=== PATIENT | female | born 1960 | race Caucasian/White ===

== ENCOUNTER 2018-11-25 07:53 | Inpatient (IN) | payer BC, MEDICAID ==
[~2018-11-25] VITALS: Ht 160 cm; Wt 55.6 kg
[2018-11-25] MEDS ORDERED: LACTATED RINGERS 1,000 ML IV ONE (08:20)
[2018-11-25] MEDS ORDERED: ONDANSETRON 4 MG/2 ML (SDV) Z0FRAN IVP ONE (08:30)
[2018-11-25 08:39] LABS: HEMATOCRIT 43 % (35-52); HEMOGLOBIN 14.6 G/DL (11.5-16.0); MEAN CORPUSCULAR HEMOGLOBIN 31 PG (25-34); MEAN CORPUSCULAR HGB CONC 34 G/DL (32-36); MEAN CORPUSCULAR VOLUME 91 FL (80-99); PLATELET COUNT 274 10^3/uL (130-400); RED CELL DISTRIBUTION WIDTH 12.6 % (10.0-14.5); WHITE BLOOD COUNT 17.4 10^3/uL (4.3-11.0)
[2018-11-25 08:40] LABS: BASOPHILS % (AUTO) 0 % (0-10); EOSINOPHILS % (AUTO) 0 % (0-10); LYMPHOCYTES # (AUTO) 0.9 X 10^3 (1.0-4.0); LYMPHOCYTES % (AUTO) 5 % (12-44); MEAN PLATELET VOLUME 9.1 FL (7.4-10.4); MONOCYTES # (AUTO) 1.4 X 10^3 (0.0-1.0); MONOCYTES % (AUTO) 8 % (0-12); NEUTROPHILS % (AUTO) 86 % (42-75)
--- NOTE | 2018-11-25 08:40 | NUR ---
Note nora in EDM - 11/25/18 at 1039 by RICARDO Mother requests her baby bottle washed. Mother does not use Pedialyte but gives regular juice. Cranberry juice requested. Pt appears not interested. RN stepped away from room.
--- NOTE | 2018-11-25 08:49 | ED Abdominal Pain ---
General Chief Complaint: Abdominal/GI Problems Stated Complaint: VOMITING Nursing Triage Note: Patient c/o nausea, vomiting, and abdominal pain. States it began 2 days ago and she hasn't been able to stop vomiting. Does report that she feel like she has had a temperature on and off for the past two days but has not taken her temperature. Sepsis Screen: No Definite Risk (NIURKA FISHER) History of Present Illness Date Seen by Provider: Nov 25, 2018 Time Seen by Provider: 07:55 Initial Comments A 58 yo female presents to the ER complaining of vomiting. Her symptoms began 2 days ago and limited her daily intake. She has tried to stay hydrated with ice chips but has had difficult time eating due to nausea. States that the nausea and vomiting gets better at night but is generally consistent throughout the day. She does have some abdominal discomfort located in the epigastric and RUQ area. Pain does not travel anywhere. Patient states that she has had sick contacts at work.Patient has not had any bowel movements but has not had trouble urinating. (NIURKA FISHER) Allergies and Home Medications Allergies Coded Allergies: No Known Drug Allergies (Unverified , 11/25/18) Patient Home Medication List Home Medication List Reviewed: Yes (DARIUS DIMAS MD) Review of Systems Review of Systems Constitutional: chills, dizziness; No fever EENTM: No Symptoms Reported Respiratory: Denies Shortness of Air, Denies SOA With Exertion, Denies SOA at Rest Cardiovascular: Denies Chest Pain; Lightheadedness Gastrointestinal: Abdominal Pain; Denies Blood Streaked Stools, Denies Dayana rrhea; Nausea, Poor Appetite, Vomiting Genitourinary: No Symptoms Reported (NIURKA FISHER) EENTM: No Symptoms Reported Respiratory: No Symptoms Reported Cardiovascular: No Symptoms Reported Gastrointestinal: See HPI Genitourinary: No Symptoms Reported Musculoskeletal: no symptoms reported Skin: no symptoms reported Psychiatric/Neurological: No Symptoms Reported Endocrine: No Symptoms Reported (DARIUS DIMAS MD) Past Eazvrmv-Dhgdph-Xhvjhq Hx Patient Social History Alcohol Use: Denies Use Recreational Drug Use: No Smoking Status: Current Everyday Smoker Type Used: Cigarettes 2nd Hand Smoke Exposure: No Recent Foreign Travel: No Contact w/Someone Who Travel: No Recent Infectious Disease Expo: No Recent Hopitalizations: No Physical Abuse: No Sexual Abuse: No Mistreated: No Fear: No (NIURKA FISHER) Immunizations Up To Date Tetanus Booster (TDap): Unknown (NIURKA FISHER) Seasonal Allergies Seasonal Allergies: No (NIURKA FISHER) Past Medical History Surgeries: Yes Section Respiratory: No Cardiac: No Neurological: No Genitourinary: No Gastrointestinal: No Musculoskeletal: No Endocrine: No HEENT: No Cancer: No Psychosocial: No Integumentary: No Blood Disorders: No (NIURKA FISHER) Physical Exam Vital Signs Vital Signs - First Documented 11/25/18 07:57 Temp 97.6 Pulse 97 Resp 18 B/P (MAP) 120/77 (91) Pulse Ox 99 O2 Delivery Room Air (DARIUS DIMAS MD) Vital Signs Capillary Refill : Less Than 3 Seconds (NIURKA FISHER) Height/Weight/BMI Height: 5'3.00" Weight: 122lbs. 4.0oz. 55.189702qt; BMI Method:Actual General Appearance: WD/WN, mild distress HEENT: normal ENT inspection, TMs normal, pharynx normal Respiratory: chest non-tender, lungs clear, normal breath sounds, no respiratory distress, no accessory muscle use Cardiovascular: no edema, no gallop, no JVD, no murmur, tachycardia (With regular rhythm) Peripheral Pulses: 3+ Radial Pulses (R), 3+ Radial Pulses (L) Gastrointestinal: soft, no organomegaly, no pulsatile mass, abnormal bowel sounds (Slightly hyperactive), other (Palpation in the Epigastric area and RUQ produced increase in nausea) Back: no CVA tenderness Neurologic/Psychiatric: alert, oriented x 3 Skin: normal color, warm/dry (NIURKA FISHER) Focused Exam Lactate Level 11/25/18 11:14: Lactic Acid Level 1.72 (DARIUS DIMAS MD) Lactic Acid Level Laboratory Tests Test 11/25/18 11:14 Lactic Acid Level 1.72 MMOL/L (0.50-2.00) (DARIUS DIMAS MD) Progress/Results/Core Measures Results/Orders Lab Results Laboratory Tests Test 11/25/18 08:25 11/25/18 09:30 11/25/18 11:14 Range/Units White Blood Count 17.4 H 4.3-11.0 10^3/uL Red Blood Count 4.67 4.35-5.85 10^6/uL Hemoglobin 14.6 11.5-16.0 G/DL Hematocrit 43 35-52 % Mean Corpuscular Volume 91 80-99 FL Mean Corpuscular Hemoglobin 31 25-34 PG Mean Corpuscular Hemoglobin Concent 34 32-36 G/DL Red Cell Distribution Width 12.6 10.0-14.5 % Platelet Count 274 130-400 10^3/uL Mean Platelet Volume 9.1 7.4-10.4 FL Neutrophils (%) (Auto) 86 H 42-75 % Lymphocytes (%) (Auto) 5 L 12-44 % Monocytes (%) (Auto) 8 0-12 % Eosinophils (%) (Auto) 0 0-10 % Basophils (%) (Auto) 0 0-10 % Neutrophils # (Auto) 15.0 H 1.8-7.8 X 10^3 Lymphocytes # (Auto) 0.9 L 1.0-4.0 X 10^3 Monocytes # (Auto) 1.4 H 0.0-1.0 X 10^3 Eosinophils # (Auto) 0.0 0.0-0.3 10^3/uL Basophils # (Auto) 0.0 0.0-0.1 10^3/uL Neutrophils % (Manual) 87 % Lymphocytes % (Manual) 5 % Monocytes % (Manual) 2 % Eosinophils % (Manual) 0 % Basophils % (Manual) 0 % Band Neutrophils 6 % Sodium Level 131 L 135-145 MMOL/L Potassium Level 3.9 3.6-5.0 MMOL/L Chloride Level 86 L 98-107 MMOL/L Carbon Dioxide Level 21 21-32 MMOL/L Anion Gap 24 H 5-14 MMOL/L Blood Urea Nitrogen 13 7-18 MG/DL Creatinine 0.75 0.60-1.30 MG/DL Estimat Glomerular Filtration Rate > 60 BUN/Creatinine Ratio 17 Glucose Level 376 H 70-105 MG/DL Calcium Level 9.5 8.5-10.1 MG/DL Corrected Calcium 9.7 8.5-10.1 MG/DL Magnesium Level 1.9 1.6-2.4 MG/DL Total Bilirubin 1.1 H 0.1-1.0 MG/DL Aspartate Amino Transf (AST/SGOT) 18 5-34 U/L Alanine Aminotransferase (ALT/SGPT) 21 0-55 U/L Alkaline Phosphatase 144 H 40-136 U/L Total Protein 7.3 6.4-8.2 GM/DL Albumin 3.7 3.2-4.5 GM/DL Urine Color YELLOW Urine Clarity CLEAR Urine pH 5.5 5-9 Urine Specific [place] 1.025 H 1.016-1.022 Urine Protein 1+ H NEGATIVE Urine Glucose (UA) 3+ H NEGATIVE Urine Ketones 3+ H NEGATIVE Urine Nitrite NEGATIVE NEGATIVE Urine Bilirubin 1+ H NEGATIVE Urine Urobilinogen 0.2 NORMAL MG/DL Urine Leukocyte Esterase NEGATIVE NEGATIVE Urine RBC (Auto) 3+ H NEGATIVE Urine RBC 2-5 H /HPF Urine WBC 5-10 H /HPF Urine Squamous Epithelial Cells 2-5 /HPF Urine Crystals NONE /LPF Urine Bacteria TRACE /HPF Urine Casts NONE /LPF Urine Mucus NONE /LPF Urine Culture Indicated YES Lactic Acid Level 1.72 0.50-2.00 MMOL/L (DARIUS DIMAS MD) My Orders Orders - DARIUS DIMAS MD Ed Iv/Invasive Line Start (11/25/18 08:20) Lactated Ringers (Lr 1000 Ml Iv Solution (11/25/18 08:20) Cbc With Automated Diff (11/25/18 08:20) Comprehensive Metabolic Panel (11/25/18 08:20) Magnesium (11/25/18 08:20) Ua Culture If Indicated (11/25/18 08:20) Ondansetron Injection (Zofran Injectio (11/25/18 08:30) Manual Differential (11/25/18 08:25) Ns Iv 1000 Ml (Sodium Chloride 0.9%) (11/25/18 09:31) Promethazine Injection (Phenergan Injec (11/25/18 09:45) Iohexol Injection (Omnipaque 350 Mg/Ml 1 (11/25/18 09:45) Received Contrast (Hold Metformin- Contr (11/25/18 09:45) Sodium Chloride Flush (Catheter Flush Sy (11/25/18 09:45) Ns (Ivpb) (Sodium Chloride 0.9% Ivpb Bag (11/25/18 09:45) Urine Culture (11/25/18 09:30) Ct Abdomen/Pelvis W (11/25/18 09:52) Blood Culture (11/25/18 10:59) Lactic Acid Analyzer (11/25/18 10:59) Ceftriaxone For Iv Use (Rocephin For I (11/25/18 11:00) (DARIUS DIMAS MD) Medications Given in ED Current Medications Medications Dose Ordered Sig/Lety Route Start Time Stop Time Status Last Admin Dose Admin Ceftriaxone Sodium 1000 mg/ Sterile Water 10 ml @ 200 mls/hr ONCE ONCE IV 11/25/18 11:00 11/25/18 11:02 DC 11/25/18 11:37 200 MLS/HR Iohexol 100 ml ONCE ONCE IV 11/25/18 09:45 11/25/18 09:46 DC 11/25/18 10:05 100 ML Lactated Ringer's 1,000 ml @ 0 mls/hr Q0M ONCE IV 11/25/18 08:20 11/25/18 08:22 DC 11/25/18 08:33 0 MLS/HR Ondansetron HCl 8 mg ONCE ONCE IVP 11/25/18 08:30 11/25/18 08:31 DC 11/25/18 08:33 8 MG Promethazine HCl 25 mg ONCE ONCE IVP 11/25/18 09:45 11/25/18 09:46 DC 11/25/18 09:39 25 MG Sodium Chloride 10 ml NEEDED PRN IV 11/25/18 09:45 11/25/18 10:05 10 ML Sodium Chloride 100 ml ONCE ONCE IV 11/25/18 09:45 11/25/18 09:46 DC 11/25/18 10:05 80 ML Sodium Chloride 1,000 ml @ 0 mls/hr Q0M ONCE IV 11/25/18 09:31 11/25/18 09:33 DC 11/25/18 09:39 0 MLS/HR (DARIUS DIMAS MD) Vital Signs/I&O 11/25/18 07:57 Temp 97.6 Pulse 97 Resp 18 B/P (MAP) 120/77 (91) Pulse Ox 99 O2 Delivery Room Air (DARIUS DIMAS MD) Blood Pressure Mean: 91 Progress Progress Note #1: Time: 09:35 Progress Note Discussed the possibility of infection due to elevated blood sugar (376) with no known history of diabetes, elevated WBC (17.4x10^3), and tachycardia. Patient elected for CT after discussing the Risks (possible contrast allergy, cost, radiation exposure), and benefits (identify source of infection, rule out other possible causes) Patient was still nauseous after 1 dose of Zofran Patient was still tachycardic after 1 L of LR's. Progress Note #2: Time: 10:47 Progress Note Discussed with patient that high WBC and high Blood sugar is due to pyelonephritis. Patient was comfortable with being admitted to the [facility] to monitor infection Discussed that her blood sugar will be monitored during stay at hospital and to find a PCP for continued monitoring of her blood sugar. Patient reported reduced nausea with IV promethazine Patient will be started on antibiotics in ER (NIURKA FISHER) Diagnostic Imaging Diagonstic Imaging: CT Plain Films/CT/US/NM/MRI: abdomen Comments NAME: [facility] REC#: [id number] PT STATUS: REG ER : 1960 PHYSICIAN: DARIUS DIMAS MD ADMIT DATE: 11/25/18/ER FS Draft Date of Exam:11/25/18 CT ABDOMEN/PELVIS W PROCEDURE: CT abdomen and pelvis with contrast. TECHNIQUE: Multiple contiguous axial images were obtained through the abdomen and pelvis after administration of intravenous contrast. Auto Exposure Controls were utilized during the CT exam to meet ALARA standards for radiation dose reduction. INDICATION: Two days history of abdominal pain with vomiting. FINDINGS: CT findings most suggestive of bilateral greater right pyelonephritis. There is some nephromegaly, perinephric edema and patchy heterogeneous renal parenchymal enhancement. No hydronephrosis and no radiodense stone at this postcontrast enhanced exam. There were no findings to suggest development of renal abscess. The appendix is normal. The urinary bladder unremarkable. The uterus and adnexa unremarkable. There is no diverticulitis. There is no bowel obstruction. The liver density is consistent with at least mild steatosis and there is mild hepatomegaly. Some perinephric retroperitoneal lymph nodes likely reactive given the suspected renal infection this measured 1 cm and less. IMPRESSION: 1. Findings most suggestive of right greater than left bilateral pyelonephritis with likely mild reactive retroperitoneal adenopathy. No visualized stone or obstruction and no abscess or drainable fluid collection. 2. Chronic mild fatty hepatomegaly. No other acute appearing abnormalities. Dictated on workstation # [id number] Dict: 11/25/18 1014 Trans: 11/25/18 1023 [id number] Interpreted by: GARRET MONTES DE OCA Time of Consult: 10:23 (NIURKA FISHER) Departure Communication (Admissions) Time/Spoke to Admitting Phy: 10:55 (DARIUS DIMAS MD) Impression Primary Impression: Pyelonephritis Additional Impressions: Sepsis Qualified Codes: A41.9 - Sepsis, unspecified organism Hypovolemia Hyperglycemia Nausea & vomiting Qualified Codes: R11.2 - Nausea with vomiting, unspecified Disposition: ADMITTED INPATIENT Condition: Stable Admissions Decision to Admit Reason: Admit from ER (General) Decision to Admit/Date: Nov 25, 2018 Time/Decision to Admit Time: 10:45 (NIURKA FISHER) Decision to Admit Reason: Admit from ER (General) Decision to Admit/Date: Nov 25, 2018 Time/Decision to Admit Time: 10:45 (DARIUS DIMAS MD) Transfer Time Spoke to Accepting Phy: 10:55 Transfer Facility: [facility] Method of Transfer: EMS (NIURKA FISHER) Time Spoke to Accepting Phy: 10:55 Transfer Time: 13:35 (DARIUS DIMAS MD) This patient was personally interviewed and examined by me along with Niurka Fisher, MS 3. I agree with his history, physical, assessment, and documentation with the following additions. Exam: Gen.: Alert, oriented, no acute distress, well-developed HEENT: normocephalic and atraumatic Lungs: Clear to auscultation bilaterally with normal effort Heart: Regular rate and rhythm without murmur Abdomen: Soft, nondistended, tenderness in the right upper and mid abdomen, normal bowel sounds Extremities: Normal to inspection, no edema Skin: Warm and dry Neuro: Alert, oriented, no focal deficits Patient was treated with 2 L of IV fluid, Zofran, and Phenergan. This seemed to control her symptoms fairly well. She did not require pain medication. There was suggestion of urinary tract infection on urinalysis. Because of patient's hyperglycemia with no known history of diabetes, leukocytosis, and tachycardia, further workup for infection was felt appropriate. Patient was offered CT scan after discussion of risks and benefits. CT was obtained and revealed evidence of pyelonephritis which would certainly explain her right upper abdominal/flank pain and findings on urinalysis. Rocephin was administered after blood cultures and lactic acid were drawn. Patient is agreeable to admission as she meets sepsis criteria. Admission was accepted by Dr. Butler. (DARIUS DIMAS MD) NIURKA FISHER [facility] Nov 25, 2018 08:49 DARIUS DIMAS MD Nov 25, 2018 12:39
--- NOTE | 2018-11-25 08:50 | NUR ---
Note nora in EDM - 11/25/18 at 1039 by RICARDO Mother reports pt been drinking whole milk no longer formula. Staff does not have milk in ER, Enfamil 2 oz formula bottle offered. Pt fussy with attempt to drink as immediate cough noted.
[2018-11-25 09:04] LABS: CHLORIDE 86 MMOL/L (98-107); POTASSIUM 3.9 MMOL/L (3.6-5.0); SODIUM 131 MMOL/L (135-145)
[2018-11-25 09:05] LABS: ALANINE AMINOTRANSFERASE 21 U/L (0-55); ALKALINE PHOSPHATASE 144 U/L (40-136); BILIRUBIN,TOTAL 1.1 MG/DL (0.1-1.0); BUN/CREATININE RATIO 17; CALCIUM 9.5 MG/DL (8.5-10.1); CARBON DIOXIDE 21 MMOL/L (21-32); CREATININE SERUM 0.75 MG/DL (0.60-1.30); GFR ESTIMATED > 60; GLUCOSE 376 MG/DL (70-105); MAGNESIUM 1.9 MG/DL (1.6-2.4); TOTAL PROTEIN 7.3 GM/DL (6.4-8.2)
[2018-11-25 09:06] LABS: ALBUMIN 3.7 GM/DL (3.2-4.5); BAND NEUTROPHILS 6 %; BASOPHILS % (MANUAL) 0 %; EOSINOPHILS % (MANUAL) 0 %; LYMPHOCYTES % (MANUAL) 5 %; MONOCYTES % (MANUAL) 2 %; NEUTROPHILS % (MANUAL) 87 %
[2018-11-25] MEDS ORDERED: NS IV 1000 ML 1,000 ML IV ONE (09:31)
[2018-11-25] MEDS ORDERED: PROMETHAZINE INJ 25 MG/ML (PHENERGAN) AMP IVP ONE (09:45)
[2018-11-25] MEDS ORDERED: HOLD METFORMIN - RECEIVED CONTRAST 20 ML VIAL IV SCH (09:45)
[2018-11-25] MEDS ORDERED: IOHEXOL 350 MG/ML 100 ML (OMNIPAQUE 350) VIAL IV ONE (09:45)
[2018-11-25] MEDS ORDERED: NS 100 ML (IVPB) BAG IV ONE (09:45)
[2018-11-25] MEDS ORDERED: CATHETER FLUSH 10 ML SYR IV PRN (09:45)
[2018-11-25 09:50] LABS: CLARITY,URINE CLEAR; COLOR,URINE YELLOW; GLUCOSE, URINE (UA) 3+ (NEGATIVE); KETONES,URINE 3+ (NEGATIVE); PH,URINE 5.5 (5-9); PROTEIN,URINE 1+ (NEGATIVE)
[2018-11-25 09:51] LABS: BACTERIA,URINE TRACE /HPF; BILIRUBIN,URINE 1+ (NEGATIVE); LEUKOCYTE ESTERASE ,URINE NEGATIVE (NEGATIVE); NITRITE,URINE NEGATIVE (NEGATIVE); UROBILINOGEN,URINE 0.2 MG/DL (NORMAL)
--- NOTE | 2018-11-25 10:24 | Diagnostic Imaging Report ---
PROCEDURE: CT abdomen and pelvis with contrast. TECHNIQUE: Multiple contiguous axial images were obtained through the abdomen and pelvis after administration of intravenous contrast. Auto Exposure Controls were utilized during the CT exam to meet ALARA standards for radiation dose reduction. INDICATION: Two days history of abdominal pain with vomiting. FINDINGS: CT findings most suggestive of bilateral greater right pyelonephritis. There is some nephromegaly, perinephric edema and patchy heterogeneous renal parenchymal enhancement. No hydronephrosis and no radiodense stone at this postcontrast enhanced exam. There were no findings to suggest development of renal abscess. The appendix is normal. The urinary bladder unremarkable. The uterus and adnexa unremarkable. There is no diverticulitis. There is no bowel obstruction. The liver density is consistent with at least mild steatosis and there is mild hepatomegaly. Some perinephric retroperitoneal lymph nodes likely reactive given the suspected renal infection this measured 1 cm and less. IMPRESSION: 1. Findings most suggestive of right greater than left bilateral pyelonephritis with likely mild reactive retroperitoneal adenopathy. No visualized stone or obstruction and no abscess or drainable fluid collection. 2. Chronic mild fatty hepatomegaly. No other acute appearing abnormalities. Dictated by: Dictated on workstation # [id number]
[2018-11-25] MEDS ORDERED: cefTRIAXone FOR IV USE 1,000 MG in WATER (STERILE) FOR INJECTION 10 ML IV ONE (11:00)
--- NOTE | 2018-11-25 14:25 | NUR ---
Pt admitted to Room 425 by EMS from [facility] ED, pt alert and orient x 4, c/o RLQ pain and intermittent nausea. Pt has been sick for 3 days, n/v and abdominal pain. Pt has 20g SL in R) AC. Family at bedside.
[2018-11-25 14:26] VITALS: BP 107/66
[2018-11-25] MEDS ORDERED: KETOROLAC 15 MG/ML VIAL IV PRN (14:30)
[2018-11-25] MEDS: inSUlin ASPART (NovoLOG) 1 UNIT/0.01 ML (CHARGE PER UNIT) SC SCH ×3 (14:30→21:28)
[2018-11-25] MEDS: NS IV 1000 ML 1,000 ML IV SCH ×2 (15:05→23:27)
[2018-11-25 15:52] VITALS: BP 99/61
[2018-11-25] MEDS: ENOXAPARIN 40 MG/0.4 ML (LOVENOX) SYR SQ SCH (16:11)
[2018-11-25] MEDS: ONDANSETRON 4 MG/2 ML (SDV) Z0FRAN IV PRN (19:44)
[2018-11-25 20:05] VITALS: BP 99/61
[2018-11-26] VITALS: BP 97/62
[2018-11-26 04:00] VITALS: BP 112/60
[2018-11-26] MEDS: ONDANSETRON 4 MG/2 ML (SDV) Z0FRAN IV PRN ×2 (04:38→16:46)
[2018-11-26 06:20] LABS: BASOPHILS % (AUTO) 0 % (0-10); EOSINOPHILS # (AUTO) 0.1 10^3/uL (0.0-0.3); EOSINOPHILS % (AUTO) 1 % (0-10); HEMATOCRIT 36 % (35-52); LYMPHOCYTES # (AUTO) 0.8 X 10^3 (1.0-4.0); LYMPHOCYTES % (AUTO) 8 % (12-44); MEAN CORPUSCULAR HEMOGLOBIN 31 PG (25-34); MEAN CORPUSCULAR HGB CONC 34 G/DL (32-36); MEAN CORPUSCULAR VOLUME 92 FL (80-99); MEAN PLATELET VOLUME 9.5 FL (7.4-10.4); MONOCYTES # (AUTO) 1.2 X 10^3 (0.0-1.0); MONOCYTES % (AUTO) 12 % (0-12); NEUTROPHILS # (AUTO) 7.9 X 10^3 (1.8-7.8); NEUTROPHILS % (AUTO) 80 % (42-75); PLATELET COUNT 210 10^3/uL (130-400); RED CELL DISTRIBUTION WIDTH 12.6 % (10.0-14.5); WHITE BLOOD COUNT 9.9 10^3/uL (4.3-11.0)
[2018-11-26] MEDS: inSUlin ASPART (NovoLOG) 1 UNIT/0.01 ML (CHARGE PER UNIT) SC SCH ×4 (06:30→20:27)
[2018-11-26 06:55] LABS: BUN/CREATININE RATIO 17; CALCIUM 8.9 MG/DL (8.5-10.1); CARBON DIOXIDE 18 MMOL/L (21-32); CHLORIDE 104 MMOL/L (98-107); CREATININE SERUM 0.71 MG/DL (0.60-1.30); GFR ESTIMATED > 60; GLUCOSE 262 MG/DL (70-105); POTASSIUM 3.5 MMOL/L (3.6-5.0); SODIUM 136 MMOL/L (135-145)
[2018-11-26] MEDS: NS IV 1000 ML 1,000 ML IV SCH ×3 (07:47→16:45)
[2018-11-26 08:35] VITALS: BP 109/64
[2018-11-26] MEDS: cefTRIAXone 1,000 MG/SWFI 10 ML IV PUSH IV SCH ×2 (08:55)
[2018-11-26 11:12] VITALS: BP 103/58
--- NOTE | 2018-11-26 11:54 | History & Physical-Hospitalist ---
History of Present Illness HPI/Chief Complaint Patient is a 58-year-old female with a past medical history of tobaccoism who presented to the emergency department with chief complaint of vomiting. She states her symptoms started 2 days ago. She believes she had a GI bug and attempted to care for herself at home. Despite this she continued to worsen and was unable to keep anything down. This prompted her significant other Juan to bring her to the emergency department for evaluation. CT abdomen and pelvis was done which revealed right sided pyelonephritis. This was consistent with right-sided flank pain. UA did show trace bacteria but otherwise was not indicative of a urinary tract infection despite this cultures are being done due to CT findings. This morning she reports feeling better and was able to tolerate some oral intake. Source: patient Exam Limitations: no limitations Date Seen 11/26/18 Time Seen by a Provider: 11:49 Attending Physician Janes Butler MD PCP No,Local Physician Referring Physician Date of Admission Nov 25, 2018 at 11:31 am Home Medications & Allergies Home Medications Reviewed patient Home Medication Reconciliation performed by pharmacy medication reconciliations irrigation service technician and/or nursing. Patients Allergies have been reviewed. Allergies Allergies Coded Allergies No Known Drug Allergies (Unverified11/25/18) Past Lsdnost-Ounoby-Ppokft Hx Past Med/Social Hx: Reviewed Nursing Past Med/Soc Hx Patient Social History Alcohol Use: Rarely Uses Recreational Drug Use: No Smoking Status: Current Everyday Smoker Cigaretts per day: 10 Type Used: Cigarettes 2nd Hand Smoke Exposure: No Physical Abuse Screen: No Sexual Abuse: No Recent Foreign Travel: No Contact w/other who traveled: No Recent Hopitalizations: No Recent Infectious Disease Expo: No Immunizations Up To Date Tetanus Booster (TDap): Unknown Seasonal Allergies Seasonal Allergies: No Past Medical History Surgeries: Section, Tonsillectomy History of Blood Disorders: No Adverse Reaction to Blood Sims: No Family History Reviewed Nursing Family Hx Cardiovascular disease 19 FATHER FH: non-Hodgkin's lymphoma 19 MOTHER, Onset:60 years & older Myocardial infarction 19 FATHER Review of Systems Constitutional: fever, weakness EENTM: no symptoms reported Respiratory: no symptoms reported Cardiovascular: no symptoms reported Gastrointestinal: see HPI, abdominal pain; No constipation, No diarrhea, No hematemesis; nausea, vomiting Genitourinary: No discharge, No dysuria, No frequency Musculoskeletal: no symptoms reported Skin: no symptoms reported Psychiatric/Neurological: No Symptoms Reported Physical Exam Physical Exam Vital Signs Vital Signs - First Documented 11/25/18 07:57 Temp 97.6 Pulse 97 Resp 18 B/P (MAP) 120/77 (91) Pulse Ox 99 O2 Delivery Room Air Capillary Refill : Less Than 3 SecondsLess Than 3 Seconds Height, Weight, BMI Height: 5'3.00" Weight: 122lbs. 8.0oz. 55.008469im; 21.7 BMI Method:Actual General Appearance: No Apparent Distress, WD/WN Eyes: Right Eye Normal Inspection, Right Eye PERRL HEENT: PERRL/EOMI, Moist Mucous Membranes; No Scleral Icterus (L), No Scleral Icterus (R) Neck: Normal Inspection, Supple; No JVD, No Thyromegaly Respiratory: Lungs Clear, No Accessory Muscle Use, No Respiratory Distress Cardiovascular: Regular Rate, Rhythm, No Edema, No Murmur, Normal Peripheral Pulses Gastrointestinal: Normal Bowel Sounds, Soft; No Distended, No Guarding, No Rebound; Tenderness (mild, diffuse but R>L) Extremity: Normal Capillary Refill, Normal Inspection, Non Tender, No Pedal Edema Neurologic/Psychiatric: Alert, Oriented x3, Normal Mood/Affect; No Aphasia, No Facial Droop Skin: Normal Color, Warm/Dry Results Results/Procedures Labs Laboratory Tests 11/25/18 08:25 11/26/18 05:40 Patient resulted labs reviewed. Imaging: Reviewed Imaging Report Imaging Date of Exam: 11/25/18 CT ABDOMEN/PELVIS W PROCEDURE: CT abdomen and pelvis with contrast. TECHNIQUE: Multiple contiguous axial images were obtained through the abdomen and pelvis after administration of intravenous contrast. Auto Exposure Controls were utilized during the CT exam to meet ALARA standards for radiation dose reduction. INDICATION: Two days history of abdominal pain with vomiting. FINDINGS: CT findings most suggestive of bilateral greater right pyelonephritis. There is some nephromegaly, perinephric edema and patchy heterogeneous renal parenchymal enhancement. No hydronephrosis and no radiodense stone at this postcontrast enhanced exam. There were no findings to suggest development of renal abscess. The appendix is normal. The urinary bladder unremarkable. The uterus and adnexa unremarkable. There is no diverticulitis. There is no bowel obstruction. The liver density is consistent with at least mild steatosis and there is mild hepatomegaly. Some perinephric retroperitoneal lymph nodes likely reactive given the suspected renal infection this measured 1 cm and less. IMPRESSION: 1. Findings most suggestive of right greater than left bilateral pyelonephritis with likely mild reactive retroperitoneal adenopathy. No visualized stone or obstruction and no abscess or drainable fluid collection. 2. Chronic mild fatty hepatomegaly. No other acute appearing abnormalities. Assessment/Plan Admission Diagnosis Sepsis due to Pyelonephritis Admission Status: Inpatient Order (span 2 midnights) Reason for Inpatient Admission: IV abx, await cultures, will take more tahn two midnights to stabilize for DC Assessment and Plan Pyelonephritis Await urine culture Continue Rocephin Symptoms improving Pain controlled with toradol Intractable nausea and vomiting Improving, tolerated breakfast Continue Zofran Hyperglycemia No known history of diabetes Continue sliding scale Will get A1c Tobacco abuse Recommend cessation Diagnosis/Problems Diagnosis/Problems (1) Hypokalemia (2) Pyelonephritis Status: Acute (3) Hyperglycemia Status: Acute (4) Nausea & vomiting Status: Acute Qualifiers: Vomiting type: unspecified Vomiting Intractability: intractable Qualified Codes: R11.2 - Nausea with vomiting, unspecified (5) Sepsis Status: Acute Qualifiers: Sepsis type: sepsis due to unspecified organism Sepsis acute organ dysfunction status: without acute organ dysfunction Qualified Codes: A41.9 - Sepsis, unspecified organism (6) Hypovolemia Status: Acute Clinical Quality Measures DVT/VTE Risk/Contraindication: Risk Factor Score Per Nursin RFS Level Per Nursing on Admit: 4+=Very High JANES BUTLER MD Nov 26, 2018 11:54 am
[2018-11-26] MEDS ORDERED: ACETAMINOPHEN 500 MG TAB (TYLENOL) PO PRN (12:00)
[2018-11-26] MEDS: POTASSIUM CL 10MEQ/50ML IVPB 50 ML IV SCH ×2 (13:24→14:02)
[2018-11-26 16:00] VITALS: BP 124/66
[2018-11-26] MEDS: ENOXAPARIN 40 MG/0.4 ML (LOVENOX) SYR SQ SCH (16:47)
--- NOTE | 2018-11-26 19:30 | NUR ---
PT REPORTED TO THIS RN THAT SHE HAS NOT BEEN SLEEPING WELL. DR CAMERON GAVE ORDER FOR MELATONIN 3 MG AT HS.
[2018-11-26 20:00] VITALS: BP 114/59
[2018-11-26] MEDS ORDERED: MELATONIN 3 MG TABLET ONE (20:26)
[2018-11-26] MEDS ORDERED: MELATONIN 3 MG TABLET PO SCH (21:00)
[2018-11-27 00:05] VITALS: BP 104/62
[2018-11-27 03:35] VITALS: BP 125/64
[2018-11-27] MEDS: NS IV 1000 ML 1,000 ML IV SCH (05:57)
[2018-11-27 06:16] LABS: BASOPHILS % (AUTO) 0 % (0-10); EOSINOPHILS # (AUTO) 0.1 10^3/uL (0.0-0.3); EOSINOPHILS % (AUTO) 1 % (0-10); HEMATOCRIT 35 % (35-52); HEMOGLOBIN 11.6 G/DL (11.5-16.0); LYMPHOCYTES # (AUTO) 1.1 X 10^3 (1.0-4.0); LYMPHOCYTES % (AUTO) 17 % (12-44); MEAN CORPUSCULAR HEMOGLOBIN 31 PG (25-34); MEAN CORPUSCULAR HGB CONC 33 G/DL (32-36); MEAN CORPUSCULAR VOLUME 92 FL (80-99); MEAN PLATELET VOLUME 9.5 FL (7.4-10.4); MONOCYTES # (AUTO) 0.8 X 10^3 (0.0-1.0); MONOCYTES % (AUTO) 13 % (0-12); NEUTROPHILS # (AUTO) 4.3 X 10^3 (1.8-7.8); NEUTROPHILS % (AUTO) 68 % (42-75); PLATELET COUNT 217 10^3/uL (130-400); RED CELL DISTRIBUTION WIDTH 12.7 % (10.0-14.5); WHITE BLOOD COUNT 6.3 10^3/uL (4.3-11.0)
[2018-11-27] MEDS: inSUlin ASPART (NovoLOG) 1 UNIT/0.01 ML (CHARGE PER UNIT) SC SCH ×2 (06:22→09:46)
[2018-11-27 06:34] LABS: BUN/CREATININE RATIO 12; CALCIUM 8.8 MG/DL (8.5-10.1); CARBON DIOXIDE 20 MMOL/L (21-32); CHLORIDE 106 MMOL/L (98-107); CREATININE SERUM 0.66 MG/DL (0.60-1.30); GFR ESTIMATED > 60; GLUCOSE 204 MG/DL (70-105); POTASSIUM 3.5 MMOL/L (3.6-5.0); SODIUM 138 MMOL/L (135-145)
[2018-11-27 07:27] VITALS: BP 127/76
[2018-11-27] MEDS: cefTRIAXone 1,000 MG/SWFI 10 ML IV PUSH IV SCH ×2 (09:18)
--- NOTE | 2018-11-27 11:03 | Discharge Inst-Simple/Standard ---
Discharge Inst-Standard Patient Instructions/Follow Up Plan of Care/Instructions/FU: Take medications as prescribed. Establish with PCP in [place]. Activity as Tolerated: Yes Discharge Diet: No Restrictions Return to The Hospital For: fevers, trouble breathing, intractable pain, or if you feel like you are getting worse. ISIDRO CONTRERAS MD Nov 27, 2018 11:03
[2018-11-27 11:04] VITALS: BP 113/69
[2018-11-27] MEDS ORDERED: ONDN4T PO (11:09)
[2018-11-27] MEDS ORDERED: CEFD300C3 PO (11:09)
[2018-11-27] MEDS ORDERED: KCL 20 MEQ TAB (K-DUR) PO ONE (11:15)
[2018-11-27 11:30] VITALS: BP 113/69
--- NOTE | 2018-11-27 13:47 | Discharge Summary ---
Diagnosis/Chief Complaint Date of Admission Nov 25, 2018 at 11:31 Date of Discharge Nov 27, 2018 at 11:30 Discharge Date: Nov 27, 2018 Discharge Time: 10:30 Admission Diagnosis Sepsis due to Pyelonephritis Primary Care No,Local Physician Discharge Diagnosis Pyelonephritis (1) Pyelonephritis Status: Acute (2) Hypokalemia Status: Resolved (3) Hyperglycemia Status: Acute (4) Nausea & vomiting Status: Resolved (5) Sepsis Status: Resolved (6) Hypovolemia Status: Resolved Discharge Summary Discharge Physical Exam Allergies: Coded Allergies: No Known Drug Allergies (Unverified , 11/25/18) Vitals & I&Os Vital Signs Date Time Temp Pulse Resp B/P (MAP) Pulse Ox O2 Delivery O2 Flow Rate FiO2 11/27/18 11:30 74 18 113/69 98 Room Air 11/27/18 11:04 98.4 General Appearance: No Apparent Distress, WD/WN HEENT: PERRL/EOMI, Pharynx Normal Respiratory: Lungs Clear, Normal Breath Sounds, No Respiratory Distress Cardiovascular: Regular Rate, Rhythm, No Edema, No Murmur Gastrointestinal: Normal Bowel Sounds, Non Tender, Soft Extremity: Normal Inspection, No Pedal Edema Skin: Normal Color, Warm/Dry Neurologic/Psychiatric: Alert, Oriented x3 Hospital Course Monalisa Quevedo is a 58-year-old female who presented with nausea and vomiting and was found to have pyelonephritis. She was started on ceftriaxone. Her urine culture had multiple colonies and let us know organism could be isolated. She was transitioned to Omnicef on discharge. Her nausea and vomiting also improved, and she was discharged with Zofran as needed. She was hyperglycemic around the 200s throughout her hospital stay, but has no known history of diabetes. A hemoglobin A1c was drawn. She will establish care with a physician in the [facility]. Labs (last 24 hrs) Laboratory Tests 11/26/18 14:25: Glucometer 181H 11/26/18 20:12: Glucometer 201H 11/27/18 05:56: White Blood Count 6.3, Red Blood Count 3.79L, Hemoglobin 11.6, Hematocrit 35, Mean Corpuscular Volume 92, Mean Corpuscular Hemoglobin 31, Mean Corpuscular Hemoglobin Concent 33, Red Cell Distribution Width 12.7, Platelet Count 217, Mean Platelet Volume 9.5, Neutrophils (%) (Auto) 68, Lymphocytes (%) (Auto) 17, Monocytes (%) (Auto) 13H, Eosinophils (%) (Auto) 1, Basophils (%) (Auto) 0, Neutrophils # (Auto) 4.3, Lymphocytes # (Auto) 1.1, Monocytes # (Auto) 0.8, Eosinophils # (Auto) 0.1, Basophils # (Auto) 0.0, Sodium Level 138, Potassium Level 3.5L, Chloride Level 106, Carbon Dioxide Level 20L, Anion Gap 12, Blood Urea Nitrogen 8, Creatinine 0.66, Estimat Glomerular Filtration Rate > 60, BUN/Creatinine Ratio 12, Glucose Level 204H, Calcium Level 8.8 11/27/18 06:04: Glucometer 206H 11/27/18 09:42: Glucometer 227H Microbiology 11/25/18 Blood Culture - Preliminary, Resulted Staph, Coag Neg ([employer]) See Comments 11/25/18 Urine Culture - Final, Complete 3 or more isolates Patient resulted labs reviewed. Pending Labs Laboratory Tests 11/27/18 05:56: White Blood Count 6.3, Red Blood Count 3.79, Hemoglobin 11.6, Hematocrit 35, Mean Corpuscular Volume 92, Mean Corpuscular Hemoglobin 31, Mean Corpuscular Hemoglobin Concent 33, Red Cell Distribution Width 12.7, Platelet Count 217, Mean Platelet Volume 9.5, Neutrophils (%) (Auto) 68, Lymphocytes (%) (Auto) 17, Monocytes (%) (Auto) 13, Eosinophils (%) (Auto) 1, Basophils (%) (Auto) 0, Neutrophils # (Auto) 4.3, Lymphocytes # (Auto) 1.1, Monocytes # (Auto) 0.8, Eosinophils # (Auto) 0.1, Basophils # (Auto) 0.0, Sodium Level 138, Potassium Level 3.5, Chloride Level 106, Carbon Dioxide Level 20, Anion Gap 12, Blood Urea Nitrogen 8, Creatinine 0.66, Estimat Glomerular Filtration Rate > 60, BUN/Cr eatinine Ratio 12, Glucose Level 204, Calcium Level 8.8 11/27/18 06:04: Glucometer 206 11/27/18 09:42: Glucometer 227 Imaging: Reviewed Imaging Report Discussion & Recommendations Discharge Planning: <30 minutes discharge planning Discharge Home Medications: Active Scripts Active Zofran (Ondansetron HCl) 4 Mg Tab 4 Mg PO Q4H PRN 7 Days Cefdinir 300 Mg Capsule 300 Mg PO BID 10 Days Condition at discharge Stable Instructions to patient/family Please see electronic discharge instructions given to patient. Clinical Quality Measures DVT/VTE Risk/Contraindication: Risk Factor Score Per Nursin RFS Level Per Nursing on Admit: 4+=Very High Problem Qualifiers (1) Nausea & vomiting: Vomiting type: unspecified Vomiting Intractability: intractable Qualified Codes: R11.2 - Nausea with vomiting, unspecified (2) Sepsis: Sepsis type: sepsis due to unspecified organism Sepsis acute organ dysfunction status: without acute organ dysfunction Qualified Codes: A41.9 - Sepsis, unspecified organism ISIDRO CONTRERAS MD Nov 27, 2018 13:46
== END 2018-11-27 11:30 | disposition home or self-care (01) | DRG 872 ==
LOC: ER FS 07:55 → 4TH 11:31
PROVIDERS: ADMIT Family Medicine; ATTEND Family Medicine
DX: A41.9 Sepsis, unspecified organism (principal); N10 Acute pyelonephritis; E86.1 Hypovolemia; R73.9 Hyperglycemia, unspecified; E87.6 Hypokalemia; F17.210 Nicotine dependence, cigarettes, uncomplicated
CPT/HCPCS: 36415; 74177; 80048; 80053; 81000; 82962; 83036; 83605; 83735; 85007; 85025; 85027; 87040; 87088; 96361; 96374; 96375

== ENCOUNTER 2023-01-23 22:38 | Emergency (ER) | payer OTHER, MEDICAID ==
[~2023-01-23] VITALS: Ht 160 cm; Wt 59.7 kg
[~2023-01-23 22:38] MED LIST: CEFD300C3 PO; ONDN4T PO
[2023-01-23 22:45] VITALS: BP 141/73
--- NOTE | 2023-01-23 22:54 | ED General ---
General Chief Complaint: Allergic Reaction Stated Complaint: ALLERGIC REACTION Nursing Triage Note: PATIENT REPORTS 30 MIN AGO STARTED ITCHING ARMS. STATES SPREADING. DENIES DIFF BREATHING. Source of Information: Patient Exam Limitations: No Limitations History of Present Illness Date Seen by Provider: Jan 23, 2023 Time Seen by Provider: 22:42 Initial Comments 62-year-old female with PMH of diabetes coming in due to rash and itching mostly over her arms. Started roughly 30 minutes prior to arrival. Does not believe she is used any new soaps, detergents, eating any new foods, or anything that she could think of. She is starting to itch on her back and abdomen as well. Denies any wheezing, shortness of breath, vomiting, or any other concerns. Allergies and Home Medications Allergies Coded Allergies: No Known Drug Allergies (Unverified , 11/25/18) Patient Home Medication List Home Medication List Reviewed: Yes Cefdinir (Cefdinir) 300 Mg Capsule, 300 MG PO BID Prescribed by: ISIDRO CONTRERAS on 11/27/18 1109 Ondansetron HCl (Zofran) 4 Mg Tab, 4 MG PO Q4H PRN for NAUSEA/VOMITING-1ST LINE Prescribed by: ISIDRO CONTRERAS on 11/27/18 1109 Review of Systems Review of Systems Constitutional: No fever EENTM: no symptoms reported Respiratory: no symptoms reported Cardiovascular: no symptoms reported Gastrointestinal: no symptoms reported Genitourinary: no symptoms reported Musculoskeletal: no symptoms reported Skin: see HPI Past [id number] Hx Patient Social History Tobacco Use?: Yes Tobacco type used: Cigarettes Immunizations Up To Date Tetanus Booster (TDap): Unknown Seasonal Allergies Seasonal Allergies: No Past Medical History Surgeries: Yes Section, Tonsillectomy Respiratory: No Cardiac: No Neurological: No Genitourinary: No Gastrointestinal: No Musculoskeletal: No Endocrine: No HEENT: No Cancer: No Psychosocial: No Integumentary: No Blood Disorders: No Adverse Reaction/Blood Tranf: No Family Medical History Cardiovascular disease 19 FATHER FH: non-Hodgkin's lymphoma 19 MOTHER, Onset:60 years & older Myocardial infarction 19 FATHER Physical Exam Vital Signs Vital Signs - First Documented 01/23/23 22:45 Temp 35.3 Pulse 86 Resp 20 B/P (MAP) 141/73 (95) Pulse Ox 100 O2 Delivery Room Air Capillary Refill : Less Than 3 Seconds Height, Weight, BMI Height: 5'3.00" Weight: 122lbs. 8.0oz. 55.640592tw; 23.00 BMI Method:Actual General Appearance: No Apparent Distress, WD/WN Eyes: Bilateral Eye Normal Inspection HEENT: PERRL/EOMI, Normal ENT Inspection, Pharynx Normal Neck: Full Range of Motion, Normal Inspection, Non Tender, Supple Respiratory: Chest Non Tender, Lungs Clear, Normal Breath Sounds, No Accessory Muscle Use, No Respiratory Distress Cardiovascular: Regular Rate, Rhythm, No Edema Gastrointestinal: Normal Bowel Sounds, Non Tender, Soft Extremity: Normal Capillary Refill, Normal Range of Motion, Non Tender, No Calf Tenderness, No Pedal Edema Neurologic/Psychiatric: Alert, No Motor/Sensory Deficits, Normal Mood/Affect Skin: Warm/Dry, Rash (Urticaria and excoriations mostly on her arms, some on her back) Progress/Results/Core Measures Suspected Sepsis SIRS Temperature: Pulse: 86 Respiratory Rate: 20 Blood Pressure 141 /73 Mean: 95 Results/Orders My Orders Orders - CARY GLYNN MD Famotidine Tablet (Famotidine Tablet) (01/23/23 23:00) Diphenhydramine Injection (Diphenhydram (01/23/23 23:00) Dexamethasone Injection (Decadron Injec (01/23/23 23:00) Vital Signs/I&O 01/23/23 22:45 Temp 35.3 Pulse 86 Resp 20 B/P (MAP) 141/73 (95) Pulse Ox 100 O2 Delivery Room Air Capillary Refill : Less Than 3 Seconds Blood Pressure Mean: 95 Progress Note : Progress Note 62-year-old female with above history coming in due to urticaria. ABCs were intact and vitals were stable on presentation. Physical exam reassuring other than the urticaria. She has no red flags in regards to her rash, and clinically is not having anaphylaxis. She was given IM Benadryl, Decadron, and oral Pepcid. I believe she is stable for discharge with outpatient follow-up. She was sent home with strict return precautions. Departure Impression Primary Impression: Urticaria Disposition: HOME, SELF-CARE Condition: Stable Departure-Patient Inst. Decision time for Depature: 23:05 Referrals: NO,LOCAL PHYSICIAN (PCP) Primary Care Physician Patient Instructions: Hives Add. Discharge Instructions: We recommend using a hypoallergenic lotion but no sense on your arm since they are also very dry. Take Benadryl as needed for the itching. You can also take [id number] famotidine on top of the Benadryl to help with that. The steroid we gave you will also help. Please follow-up with your regular doctor if you are not seeing improvement in the next day or so. Work/School Note: Work Release Form Date Seen in the Emergency Department: Jan 23, 2023 Return to Work: Jan 25, 2023 Restrictions: No Restrictions CARY GLYNN MD Jan 23, 2023 22:54
[2023-01-23] MEDS ORDERED: FAMOTIDINE 20 MG TABLET PO ONE (23:00)
[2023-01-23] MEDS ORDERED: diphenhydrAMINE INJ 50 MG/ML VIAL IM ONE (23:00)
[2023-01-23] MEDS ORDERED: dexAMETHasone INJ 4 MG/ML SDV IM ONE (23:00)
== END 2023-01-23 23:13 | disposition home or self-care (01) ==
LOC: EDUNIT# 22:38 → ER FS 22:40
DX: L50.9 Urticaria, unspecified (principal); F17.210 Nicotine dependence, cigarettes, uncomplicated
CPT/HCPCS: 96372